=== PATIENT | female | born 1985 | race Caucasian/White ===

== ENCOUNTER 2020-03-16 08:48 | Observation (INO) | payer SELFPAY ==
[2020-03-16] VITALS (11 sets, daily range): BP systolic 87–137; BP diastolic 61–90; PULSE 85–109; RESP 18; TEMP 36.9–37.4; O2SAT 96–100; BMI 35.4
--- NOTE | 2020-03-16 09:12 | XR_ITS ---
WS: [id number] KUB, portable supine, 03/16/2020 Clinical Data: left flank pain Comparison: KUB, 06/05/2013. Findings: No abnormal intraabdominal masses or calcifications are seen. There is no dilatated small bowel or ev idence of obstruction. There are clips in the right upper quadrant from a cholecystectomy. There is a small clip in the left side of the chest or pelvis. Minimal fecal material is seen in the descending colon. XR/XR KUB portable [id number] Impression: Negative KUB.
--- NOTE | 2020-03-16 09:21 | ED_ITS ---
Documented by User: SETH Liu 03/16/20 13:41 HPI - Back Pain/Injury General: Chief Complaint: Back Pain/Injury Stated Complaint: Lower abdominal pain Time Seen by Provider: 03/16/20 09:06 History of Present Illness: HPI Narrative: 35-year-old female patient presents to the emergency department with left flank pain. Pain started yesterday. She denies fever but reports night sweats last night. History of kidney in fections/urinary tract infections. She denies dysuria. Denies nausea vomiting diarrhea. Denies history of kidney stones. Onset (ago): day(s) (2) Timing: intermittent and progressively worsening Severity: moderate Quality: sharp and aching Location: left flank Exacerbating factors: movement Relieving factors: other (rest) Context: turning/twisting and bending Associated symptoms: Reports chills; Deny abdominal pain, dysuria, fatigue, fever(s), nausea, urinary urgency or vomiting Work related injury: No Review of Systems General: Reports: 10 or more systems reviewed and unremarkable except in HPI and below Const: Reports: chills; Denies: fever(s), body aches, fatigue or malaise Eyes: Denies: blurry vision or eye redness ENMT: Denies: throat pain, dental pain or disequilibrium Card: Denies: chest pain, palpitations or irregular heart rhythm Resp: Denies: dyspnea, productive cough, non-productive cough or wheezing GI: Denies: abdominal pain, nausea, vomiting or pain on defecation : Denies: difficulty voiding, dysuria, urinary urgency, urinary incontinence or vaginal discharge Musc: Denies: neck pain or back pain Skin/Breast: Denies: rash or pruritus Neuro: Denies: headache(s), weakness in extremities or behavioral changes Psych: Denies: anxiety or depression Dimitris/Lymph: Denies: easy bruising Physical Exam Const: COMMON NORMALS: no acute distress, patient oriented x3, healthy appearing and alert GENERAL APPEARANCE: cooperative, comfortable and well hydrated HENMT: COMMON NORMALS: normocephalic, Normal external nose present and moist oral mucous membranes HEAD & SCALP: normocephalic NOSE: Normal external nose present Eye: COMMON NORMALS: Equal, round and reactive pupils present and EOMs intact bilaterally GENERAL EYE: appearance normal, both eyes and all related structures PUPIL: Yes Equal, round and reactive pupils present Neck/C-Spine: COMMON NORMALS: full ROM and no lymphadenopathy GENERAL: Yes normal visual inspection and Yes trachea midline CERVICAL SPINE: Yes cervical ROM normal Lymph: LYMPHATIC: no lymphadenopathy noted Chest: COMMONS NORMALS: normal inspection of the chest Resp: COMMON NORMALS: normal respiratory effort and clear to auscultation bilaterally AUSCULTATION: clear to auscultation bilaterally Cardio: COMMON NORMALS: regular rhythm, S1 normal heart sound present, S2 normal heart sound present and Peripheral pulses 2+ throughout RHYTHM: regular rhythm HEART SOUNDS: S1 normal heart sound present and S2 normal heart sound present PERIPHERAL PULSES: Peripheral pulses 2+ throughout GI: COMMON NORMALS: Normal to inspection, nondistended, normoactive bowel sounds present and Soft to palpation INSPECTION: Yes normal to inspection and Yes central obesity AUSCULTATION: Yes Hypoactive bowel sounds present PALPATION: Yes Soft to palpation, Yes Tenderness to palpation present (GI) Details: LUQ, No Hernia present, No Rebound tenderness present and Yes Bladder palpation abnormal Details: tender : BLADDER/KIDNEY EXAM: Yes Bladder palpation abnormal and Yes CVA tenderness EXTERNAL FEMALE EXAM: No Hernia present Back/Pelvis: COMMON NORMALS: thoracic and lumbar spine normal to inspection and thoraco-lumbar ROM normal GENERAL BACK: Yes CVA tenderness CVA tenderness: left THORACIC SPINE/UPPER BACK: Yes normal to inspection, Yes thoracic ROM normal, No paraspinal muscle tenderness and No paraspinal muscle spasm LUMBAR SPINE/LOWER BACK: Yes normal to inspection, Yes lumbar ROM normal, No paraspinal muscle tenderness and No paraspinal muscle spasm SACROILIAC JOINTS: Yes SI joints normal Extremity: COMMON NORMALS: normal to inspection and capillary refill normal Neuro: COMMON NORMALS: patient oriented x3 and no focal motor deficits SENSORIUM/ORIENTATION: Yes alert Psych: COMMON NORMALS: mental status grossly normal, Normal thought process present and cooperative ACTIVITY/MOTOR BEHAVIOR: Yes appropriate eye contact THOUGHT PROCESS: Normal thought process present Skin: COMMON NORMALS: no rashes or lesions noted and turgor normal GENERAL SKIN EXAM: no rashes or lesions noted and turgor normal Course ED course: 35-year-old female patient presents to the emergency department with findings of acute diverticulitis with perforation of the proximal left colon. White blood count elevated 17,000, case discussed with Dr. Wong as well as Dr. Forte, pain controlled with morphine 2 mg IV push along with Zofran. Transfer of care to Dr. Wong due to need for admission. Consultations: Consultation #1: Dr Kan at 1215 pm -Case discussed with Dr. Forte, radiology report CT scan abdomen pelvis discussed with perforation, Left hepatic flexure and descending colon thickening with inflammatory stranding and edema consistent with acute diverticulitis/colitis. Perforated diverticulum in the proximal left colon. No drainable abscess or fluid collection. Patient reports is healthy without past medical history with exception of cholecystectomy and C-sections. Placed on n.p.o. diet with exception of ice chips, advised antibiotics with lactated Ringer's rate 150 mls per hour. Advise Lovenox 40 mg subcu daily for DVT prevention, advised for CBC and CMP in the morning. Agrees to admit patient to observation. Request Covid PTC, patient does not exhibit symptoms of Covid at this time. Time: 12:15 Vital Signs: Vital signs: Vital Signs Temperature 98.4 F 03/16/20 08:52 Pulse Rate 102 H 03/16/20 11:34 Respiratory Rate 18 03/16/20 11:34 Blood Pressure 87/68 03/16/20 11:34 Pulse Oximetry 99 03/16/20 11:34 MDM - Back Pain/Injury Lab Data: Labs: Lab Results 03/16/20 03/16/20 03/16/20 Range/Units 09:20 10:00 10:00 WBC 17.3 H (4.0-10.0) 10^3/ uL RBC 4.67 (4.1-5.3) 10^6/u L Hgb 13.3 (11.5-15.3) g/dL Hct 41.3 (37.0-47.0) % MCV 88.4 (81-99) fL MCH 28.5 (28.0-34.0) pg MCHC 32.2 (30.0-36.0) g/dL RDW 13.3 (12.1-15.1) % Plt Count 436 H (130-400) 10^3/c mm MPV 9.2 (7.4-10.4) fL Neut % (Auto) 79.3 % Lymph % (Auto) 13.0 % [place] % (Auto) 5.9 % Eos % (Auto) 1.1 % Baso % (Auto) 0.3 % Neut # (Auto) 13.73 H (1.8-7.7) 10^3/u L Lymph # (Auto) 2.3 (0.8-4.8) 10^3/u L [place] # (Auto) 1.0 H (0.2-0.9) 10^3/u L Eos # (Auto) 0.2 (0.0-0.8) 10^3/u L Baso # (Auto) 0.1 (0.0-0.1) 10^3/u L Nucleated RBC % (a uto) 0 % Nucleated RBCs # 0.0 /100WBC D-Dimer (0-0.59) ug/mIFE U Sodium 133 L (136-145) mmol/L Potassium 3.8 (3.5-5.1) mmol/L Chloride 98 (98-107) mmol/L Carbon Dioxide 25 (22-29) mmol/L Anion Gap 13.8 (5-19) BUN 9 (6-20) mg/dL Creatinine 0.7 (0.5-0.9) mg/dL GFR Calculation 94.7 (90-130) mL/min Glucose 98 (65-115) mg/dL Calculated Osmolal ity 275 L (285-295) mOsm/k g Calcium 9.8 (8.5-10.5) mg/dL Total Bilirubin 0.6 (0.15-1.2) mg/dL AST 11 (0-32) U/L ALT 11 (0-33) U/L Alkaline Phosphata se 148 H (35-105) IU/L Total Protein 7.8 (6.6-8.7) g/dL Albumin 4.1 (3.5-5.2) g/dL Globulin 3.7 (1.3-4.6) g/dL Lipase 23 (13-60) U/L HCG, Qual (Negative) Urine Color Yellow (Yellow) Urine Appearance Clear (CLEAR) Urine pH 7.0 (5-7) Ur Specific Gravit y 1.005 (1.005-1.030) Urine Protein Neg (Negative) Urine Glucose (UA) Norm (Normal) Urine Ketones Negative (Negative) Urine Blood Neg (Negative) Urine Nitrate Negative (Negative) Urine Bilirubin Neg (Negative) Urine Urobilinogen 1 H (Negative) mg/dL Ur Leukocyte Joelle ase Negative (Negative) 03/16/20 03/16/20 Range/Units 10:00 10:00 WBC (4.0-10.0) 10^3/ uL RBC (4.1-5.3) 10^6/u L Hgb (11.5-15.3) g/dL Hct (37.0-47.0) % MCV (81-99) fL MCH (28.0-34.0) pg MCHC (30.0-36.0) g/dL RDW (12.1-15.1) % Plt Count (130-400) 10^3/c mm MPV (7.4-10.4) fL Neut % (Auto) % Lymph % (Auto) % [place] % (Auto) % Eos % (Auto) % Baso % (Auto) % Neut # (Auto) (1.8-7.7) 10^3/u L Lymph # (Auto) (0.8-4.8) 10^3/u L [place] # (Auto) (0.2-0.9) 10^3/u L Eos # (Auto) (0.0-0.8) 10^3/u L Baso # (Auto) (0.0-0.1) 10^3/u L Nucleated RBC % (a uto) % Nucleated RBCs # /100WBC D-Dimer 1.04 H (0-0.59) ug/mIFE U Sodium (136-145) mmol/L Potassium (3.5-5.1) mmol/L Chloride (98-107) mmol/L Carbon Dioxide (22-29) mmol/L Anion Gap (5-19) BUN (6-20) mg/dL Creatinine (0.5-0.9) mg/dL GFR Calculation (90-130) mL/min Glucose (65-115) mg/dL Calculated Osmolal ity (285-295) mOsm/k g Calcium (8.5-10.5) mg/dL Total Bilirubin (0.15-1.2) mg/dL AST (0-32) U/L ALT (0-33) U/L Alkaline Phosphata se (35-105) IU/L Total Protein (6.6-8.7) g/dL Albumin (3.5-5.2) g/dL Globulin (1.3-4.6) g/dL Lipase (13-60) U/L HCG, Qual Negative (Negative) Urine Color (Yellow) Urine Appearance (CLEAR) Urine pH (5-7) Ur Specific Gravit y (1.005-1.030) Urine Protein (Negative) Urine Glucose (UA) (Normal) Urine Ketones (Negative) Urine Blood (Negative) Urine Nitrate (Negative) Urine Bilirubin (Negative) Urine Urobilinogen (Negative) mg/dL Ur Leukocyte Joelle ase (Negative) Imaging Data^: Other Xray: Radiologist's impression: [place] [address] XRay Report Signed Patient: Karla Marion Unit #: [id number] : 1985 Age/Sex: 35 / F ADM Date: 03/16/20 Loc: ER Room/Bed: Attending Dr: Ordering Provider/Ordering MD: Cat Baker Date of Service: 03/16/20 Procedure(s): XR KUB portable [id number] Accession Number(s): [id number] Report Number: [id number] WS: [id number] KUB, portable supine, 03/16/2020 Clinical Data: left flank pain Comparison: KUB, 06/05/2013. Findings: No abnormal intraabdominal masses or calcifications are seen. There is no dilatated small bowel or evidence of obstruction. There are clips in the right upper quadrant from a cholecystectomy. There is a small clip in the left side of the chest or pelvis. Minimal fecal material is seen in the descending colon. XR/XR KUB portable [id number] Impression: Negative KUB. Dictated By: Matilda eJtt MD Signed By: Matilda Jett MD Signed Date/Time: 03/16/20942 DD/ 1 CXR: Radiologist's impression: [address] [address] XRay Report Signed Patient: Karla Marion Unit #: [id number] : 1985 Age/Sex: 35 / F ADM Date: 03/16/20 Loc: ER Room/Bed: Attending Dr: Ordering Provider/Ordering MD: Cat Baker Date of Service: 03/16/20 Procedure(s): XR chest 1V portable [id number] Accession Number(s): [id number] Report Number: [id number] WS: [id number] Portable AP upright chest, 03/16/2020 Clinical Data: syncope Comparison: None. Findings: No nodules, masses or effusions are seen. The heart is normal. The pulmonary vascularity is not increased. No pneumonia or pneumothorax is seen. The patient's clothing obscures minimal detail over the central chest. XR/XR chest 1V portable [id number] Impression: Negative chest. Dictated By: Matilda Jett MD Signed By: Matilda Jett MD Signed Date/Time: 03/16/20 110 DD/ 110 CT Abd/Pel: Radiologist's impression: [place] [address] CT Scan Report Signed Patient: Karla Marion Unit #: [id number] : 1985 Age/Sex: 35 / F ADM Date: 03/16/20 Loc: ER Room/Bed: Attending Dr: Ordering Provider/Ordering MD: Cat Baker Date of Service: 03/16/20 Procedure(s): CT kidney stone [id number] Accession Number(s): [id number] Report Number: [id number] WS: [id number] CT ABDOMEN PELVIS TECHNIQUE: Noncontrast CT of the abdomen and pelvis with coronal and sagittal reformatted images. CLINICAL INFORMATION: flank pain - left COMPARISON: None. DLP: 2213.[address] scans at [facility] use at least one of these dose optimization techniques: automated exposure control; mA and/or kV adjustment per patient size (includes targeted exams where dose is matched to clinical indication); or iterative reconstruction. FINDINGS:Normal sigmoid colon. Diffuse thickening and inflammatory stranding involving the descending left colon more prominent at the splenic flexure and proximal descending colon with a few diverticuli consistent with diverticulitis/colitis. Small perforated diverticulum in the proximal descending colon. No drainable abscess or fluid collection. Noncontrast liver is normal. Prior cholecystectomy. Lung bases are well aerated. Tiny subpleural nodule in the right upper lobe measuring 4 mm. Noncontrast spleen is normal. Normal noncontrast pancreas. Adrenal glands are normal. No hydronephrosis in either kidney. Ureters are decompressed. Normal caliber abdominal aorta. No periaortic lymphadenopathy. Incidental fat-containing umbilical hernia. Normal sigmoid colon. Diffuse thickening and inflammatory stranding involving the descending left colon more prominent at the splenic flexure and proximal descending colon with a few diverticuli consistent with diverticulitis/colitis. Small perforated diverticulum in the proximal descending colon. No drainable abscess or fluid collection. No inguinal lymphadenopathy. No free fluid in the pelvis. Normal appendix. CT/CT kidney stone [id number] IMPRESSION: 1. Left hepatic flexure and descending colon thickening with inflammatory stranding and edema consistent with acute diverticulitis/colitis. Perforated diverticulum in the proximal left colon. No drainable abscess or fluid collection. 2. Prior cholecystectomy. 3. 4 mm subpleural nodule in the right upper lobe laterally. Recommend 12 month follow-up. 4. Incidental fat-containing umbilical hernia. Message left for SETH Liu at 03/16/2020 11:48 AM. Dictated By: Jairo Hansen MD Signed By: Jairo Hansen MD Signed Date/Time: 03/16/20 1153 DD/ 1143 Discharge Plan Discharge Admit Provider: Fercho Forte Sign Out Sign Out Data: Patient Sign Out occurred on 03/16/20 at 12:30. Patient's care was discussed, and care was transferred from to Aissatou Contreras. Coding Level of Care Code ED Produce Clerk for Chg Fwd Exam Comprehensive Documented by User: Aissatou Contreras 03/16/20 12:56 HPI - Back Pain/Injury General: Chief Complaint: Back Pain/Injury Stated Complaint: Lower abdominal pain Time Seen by Provider: 03/16/20 09:06 Procedures EJ/Peripheral Line Arm R: Time Out Performed: Yes Skin Cleansed in Sterile Fashion: Yes Size (gauge): 20 IV Secured and Dressing Applied: Yes Patient Tolerated Procedure: well Additional Comments: Percent utilized throughout procedure. Course Vital Signs: Vital signs: Vital Signs Temperature 98.4 F 03/16/20 08:52 Pulse Rate 102 H 03/16/20 11:34 Respiratory Rate 18 03/16/20 11:34 Blood Pressure 87/68 03/16/20 11:34 Pulse Oximetry 99 03/16/20 11:34 MDM - Back Pain/Injury MDM Narrative: Medical decision making narrative: Patient signed out to me from Cat Boston APN. Please see her note for history, physical exam and medical decision-making notes. Patient's exam to me shows no sign of peritonitis but she is tender in the left side. She will be given IV antibiotics and pain medicines and further care will be dictated by Dr. Forte. Lab Data: Labs: Lab Results 03/16/20 03/16/20 03/16/20 Range/Units : 10:00 10:00 WBC 17.3 H (4.0-10.0) 10^3/ uL RBC 4.67 (4.1-5.3) 10^6/u L Hgb 13.3 (11.5-15.3) g/dL Hct 41.3 (37.0-47.0) % MCV 88.4 (81-99) fL MCH 28.5 (28.0-34.0) pg MCHC 32.2 (30.0-36.0) g/dL RDW 13.3 (12.1-15.1) % Plt Count 436 H (130-400) 10^3/c mm MPV 9.2 (7.4-10.4) fL Neut % (Auto) 79.3 % Lymph % (Auto) 13.0 % [place] % (Auto) 5.9 % Eos % (Auto) 1.1 % Baso % (Auto) 0.3 % Neut # (Auto) 13.73 H (1.8-7.7) 10^3/u L Lymph # (Auto) 2.3 (0.8-4.8) 10^3/u L [place] # (Auto) 1.0 H (0.2-0.9) 10^3/u L Eos # (Auto) 0.2 (0.0-0.8) 10^3/u L Baso # (Auto) 0.1 (0.0-0.1) 10^3/u L Nucleated RBC % (a uto) 0 % Nucleated RBCs # 0.0 /100WBC D-Dimer (0-0.59) ug/mIFE U Sodium 133 L (136-145) mmol/L Potassium 3.8 (3.5-5.1) mmol/L Chloride 98 (98-107) mmol/L Carbon Dioxide 25 (22-29) mmol/L Anion Gap 13.8 (5-19) BUN 9 (6-20) mg/dL Creatinine 0.7 (0.5-0.9) mg/dL GFR Calculation 94.7 (90-130) mL/min Glucose 98 (65-115) mg/dL Calculated Osmolal ity 275 L (285-295) mOsm/k g Calcium 9.8 (8.5-10.5) mg/dL Total Bilirubin 0.6 (0.15-1.2) mg/dL AST 11 (0-32) U/L ALT 11 (0-33) U/L Alkaline Phosphata se 148 H (35-105) IU/L Total Protein 7.8 (6.6-8.7) g/dL Albumin 4.1 (3.5-5.2) g/dL Globulin 3.7 (1.3-4.6) g/dL Lipase 23 (13-60) U/L HCG, Qual (Negative) Urine Color Yellow (Yellow) Urine Appearance Clear (CLEAR) Urine pH 7.0 (5-7) Ur Specific Gravit y 1.005 (1.005-1.030) Urine Protein Neg (Negative) Urine Glucose (UA) Norm (Normal) Urine Ketones Negative (Negative) Urine Blood Neg (Negative) Urine Nitrate Negative (Negative) Urine Bilirubin Neg (Negative) Urine Urobilinogen 1 H (Negative) mg/dL Ur Leukocyte Joelle ase Negative (Negative) 10/22/20 10/22/20 Range/Units 10:00 10:00 WBC (4.0-10.0) 10^3/ uL RBC (4.1-5.3) 10^6/u L Hgb (11.5-15.3) g/dL Hct (37.0-47.0) % MCV (81-99) fL MCH (28.0-34.0) pg MCHC (30.0-36.0) g/dL RDW (12.1-15.1) % Plt Count (130-400) 10^3/c mm MPV (7.4-10.4) fL Neut % (Auto) % Lymph % (Auto) % [place] % (Auto) % Eos % (Auto) % Baso % (Auto) % Neut # (Auto) (1.8-7.7) 10^3/u L Lymph # (Auto) (0.8-4.8) 10^3/u L [place] # (Auto) (0.2-0.9) 10^3/u L Eos # (Auto) (0.0-0.8) 10^3/u L Baso # (Auto) (0.0-0.1) 10^3/u L Nucleated RBC % (a uto) % Nucleated RBCs # /100WBC D-Dimer 1.04 H (0-0.59) ug/mIFE U Sodium (136-145) mmol/L Potassium (3.5-5.1) mmol/L Chloride (98-107) mmol/L Carbon Dioxide (22-29) mmol/L Anion Gap (5-19) BUN (6-20) mg/dL Creatinine (0.5-0.9) mg/dL GFR Calculation (90-130) mL/min Glucose (65-115) mg/dL Calculated Osmolal ity (285-295) mOsm/k g Calcium (8.5-10.5) mg/dL Total Bilirubin (0.15-1.2) mg/dL AST (0-32) U/L ALT (0-33) U/L Alkaline Phosphata se (35-105) IU/L Total Protein (6.6-8.7) g/dL Albumin (3.5-5.2) g/dL Globulin (1.3-4.6) g/dL Lipase (13-60) U/L HCG, Qual Negative (Negative) Urine Color (Yellow) Urine Appearance (CLEAR) Urine pH (5-7) Ur Specific Gravit y (1.005-1.030) Urine Protein (Negative) Urine Glucose (UA) (Normal) Urine Ketones (Negative) Urine Blood (Negative) Urine Nitrate (Negative) Urine Bilirubin (Negative) Urine Urobilinogen (Negative) mg/dL Ur Leukocyte Joelle ase (Negative) Discharge Plan Discharge Admit Provider: Fercho Forte Sign Out Sign Out Data: Patient Sign Out occurred on 03/16/20 at 12:30. Patient's care was discussed, and care was transferred from to Aissatou Delgado [facility]. Coding Level of Care Code ED Produce Clerk for Jose Fwd Exam Comprehensive
[2020-03-16 10:07] LABS: Add Urine Microscopic? NO
[2020-03-16 10:17] LABS: Bilirubin Urine Neg (Negative); Blood Urine Neg (Negative); Glucose Urine UA Norm (Normal); Ketones Urine Negative (Negative); Leukocyte Esterase Urine Negative (Negative); Nitrate Urine Negative (Negative); Protein Urine Neg (Negative); Specific Gravity, Urine 1.005 (1.005-1.030); Urine Appearance Clear (CLEAR); Urine Color Yellow (Yellow); Urobilinogen Urine 1 mg/dL (Negative)
[2020-03-16 10:18] LABS: Basophils # 0.1 10^3/uL (0.0-0.1); Basophils % 0.3 %; Eosinophils # 0.2 10^3/uL (0.0-0.8); Eosinophils % 1.1 %; Hematocrit 41.3 % (37.0-47.0); Hemoglobin 13.3 g/dL (11.5-15.3); Lymphocytes # 2.3 10^3/uL (0.8-4.8); Mean Corpuscular HGB Conc 32.2 g/dL (30.0-36.0); Mean Corpuscular Hemoglobin 28.5 pg (28.0-34.0); Mean Corpuscular Volume 88.4 fL (81-99); Mean Platelet Volume 9.2 fL (7.4-10.4); Monocytes % 5.9 %; Neutrophils # 13.73 10^3/uL (1.8-7.7); Neutrophils % 79.3 %; Nucleated Red Blood Cells % 0 %; Platelet Count 436 10^3/cmm (130-400); Red Blood Count 4.67 10^6/uL (4.1-5.3); Red Cell Distribution Width 13.3 % (12.1-15.1); White Blood Count 17.3 10^3/uL (4.0-10.0)
[2020-03-16] MEDS: morphine 4 mg/mL SDV 1 mL 2 MG IVP (10:18)
[2020-03-16] MEDS: ondansetron 2 mg/ML SDV 2 mL 4 MG IVP (10:19)
[2020-03-16 10:24] LABS: HCG, Serum Qual Negative (Negative)
[2020-03-16 10:28] LABS: Alanine Aminotransferase 11 U/L (0-33); Albumin Level 4.1 g/dL (3.5-5.2); Alkaline Phosphatase 148 IU/L (35-105); Anion Gap 13.8 (5-19); Aspartate Amino Transferase 11 U/L (0-32); Carbon Dioxide 25 mmol/L (22-29); Chloride 98 mmol/L (98-107); Globulin 3.7 g/dL (1.3-4.6); Glomerular Filtration Rate 94.7 mL/min (90-130); Glucose 98 mg/dL (65-115); Lipase 23 U/L (13-60); Potassium 3.8 mmol/L (3.5-5.1); Sodium 133 mmol/L (136-145); Total Bilirubin 0.6 mg/dL (0.15-1.2); Total Protein 7.8 g/dL (6.6-8.7)
[2020-03-16 10:39] LABS: Blood Urea Nitrogen 9 mg/dL (6-20); Calcium 9.8 mg/dL (8.5-10.5); Osmolality Calculated 275 mOsm/kg (285-295)
--- NOTE | 2020-03-16 10:40 | CT_ITS ---
WS: [id number] CT ABDOMEN PELVIS TECHNIQUE: Noncontrast CT of the abdomen and pelvis with coronal and sagittal reformatted images. CLINICAL INFORMATION: flank pain - left COMPARISON: None. DLP: 2213.[address] scans at [facility] use at least one of these dose optimization techniques: automat ed exposure control; mA and/or kV adjustment per patient size (includes targeted exams where dose is matched to clinical indication); or iterative reconstruction. FINDINGS:Normal sigmoid colon. Diffuse thickening and inflammatory stranding involving the descending left colon more prominent at the splenic flexure and proximal descending colon with a few diverticul i consistent with diverticulitis/colitis. Small perforated diverticulum in the proximal descending co adis. No drainable abscess or fluid collection. Noncontrast liver is normal. Prior cholecystectomy. Lung bases are well aerated. Tiny subpleural nodu le in the right upper lobe measuring 4 mm. Noncontrast spleen is normal. Normal noncontrast pancreas. Adrenal glands are normal. No hydronephros is in either kidney. Ureters are decompressed. Normal caliber abdominal aorta. No periaortic lymphade nopathy. Incidental fat-containing umbilical hernia. Normal sigmoid colon. Diffuse thickening and inflammatory stranding involving the descending left col on more prominent at the splenic flexure and proximal descending colon with a few diverticuli consist ent with diverticulitis/colitis. Small perforated diverticulum in the proximal descending colon. No d rainable abscess or fluid collection. No inguinal lymphadenopathy. No free fluid in the pelvis. Normal appendix. CT/CT kidney stone [id number] IMPRESSION: 1. Left hepatic flexure and descending colon thickening with inflammatory stra nding and edema consistent with acute diverticulitis/colitis. Perforated divert iculum in the proximal left colon. No drainable abscess or fluid collection. 2. Prior cholecystectomy. 3. 4 mm subpleural nodule in the right upper lobe laterally. Recommend 12 brissa h follow-up. 4. Incidental fat-containing umbilical hernia. Message left for SETH Liu at 03/16/2020 11:48 AM.
--- NOTE | 2020-03-16 10:46 | XR_ITS ---
WS: [id number] Portable AP upright chest, 03/16/2020 Clinical Data: syncope Comparison: None. Findings: No nodules, masses or effusions are seen. The heart is normal. The pulmonary vascularity is not increased. No pneumonia or pneumothorax is seen. The patient's clothing obscures minimal detail over the central chest. XR/XR chest 1V portable [id number] Impression: Negative chest.
[2020-03-16 11:07] LABS: D Dimer 1.04 ug/mIFEU (0-0.59)
[2020-03-16] MEDS: metroNIDAZOLE IV 500 MG/100 ML PREMIX 100 MG IV ×2 (12:54→22:25)
[2020-03-16] MEDS: ciprofloxacin 400 MG/200 ML PREMIX 200 MG IV (12:54)
[2020-03-16 13:09] LABS: Lactate (Lactic Acid level) 0.7 mmol/L (0.5-2.2)
--- NOTE | 2020-03-16 14:44 | P.HP_ITS ---
Providers/Chief Complaint Admitting Physician: Fercho Forte MD Primary Care Provider: Tung Coronado DO Chief Complaint: Lower abdominal pain History of Present Illness Chief Complaint: Abdominal pain History of present illness: Ms Karla Marion is a 35 year old female presents to the emergency department with worsening abdominal pain located mostly on the left side particularly left lower quadrant and being referred to the left flank patient describes it more as sharp and it was thought initially the patient has a kidney stone. Undergone a CT scan protocol that showed INDINGS:Normal sigmoid colon. Diffuse thickening and inflammatory stranding involving the descending left colon more prominent at the splenic flexure and proximal descending colon with a few diverticuli consistent with diverticulitis/colitis. Small perforated diverticulum in the proximal descending colon. No drainable abscess or fluid collection. Noncontrast liver is normal. Prior cholecystectomy. Lung bases are well aerated. Tiny subpleural nodule in the right upper lobe measuring 4 mm. Noncontrast spleen is normal. Normal noncontrast pancreas. Adrenal glands are normal. No hydronephrosis in either kidney. Ureters are decompressed. Normal caliber abdominal aorta. No periaortic lymphadenopathy. Incidental fat- containing umbilical hernia. Normal sigmoid colon. Diffuse thickening and inflammatory stranding involving the descending left colon more prominent at the splenic flexure and proximal descending colon with a few diverticuli consistent with diverticulitis/colitis. Small perforated diverticulum in the proximal descending colon. No drainable abscess or fluid collection. No inguinal lymphadenopathy. No free fluid in the pelvis. Normal appendix. CT/CT kidney stone [id number] IMPRESSION: 1. Left hepatic flexure and descending colon thickening with inflammatory stranding and edema consistent with acute diverticulitis/colitis. Perforated diverticulum in the proximal left colon. No drainable abscess or fluid collection. 2. Prior cholecystectomy. 3. 4 mm subpleural nodule in the right upper lobe laterally. Recommend 12 month follow-up. 4. Incidental fat-containing umbilical hernia. Further blood work showed leukocytosis and general surgery was consulted for further evaluation and management. She reports no previous episodes of such but she does give me history of diverticulosis of her grandma and her mother. She denies history of colon cancer inflammatory bowel disease no bleeding per rectum or change in bowel habits. Review of Systems General: Reports: 10 or more systems reviewed and unremarkable except in HPI and below Medications/Allergies Allergies Allergy/AdvReac Type Severity Reaction Status Date / Time ceftriaxone Allergy ALGY-Anaphy Verified 03/16/20 17:14 laxis PFSH Acute PFSH: Social History (Updated 03/16/20 @ 17:14 by Fercoh Forte MD) Smoking and tobacco status: never smoked Alcohol intake: never Substance/Drug Use: former Vitals/I&O/Wt Last Vital Signs Temp 98.4 F 03/16/20 08:52 Pulse 97 03/16/20 14:27 Resp 18 03/16/20 14:27 BP 112/87 03/16/20 14:27 Pulse Ox 98 03/16/20 14:27 Weight last 48 hrs Weight 240 lb Physical Exam Narrative: EXAM NARRATIVE: Patient is conscious alert oriented X3 BMI 35.4 Head and neck examination PERRLA no masses no cervical lymphadenopathy no jaundice Cardiac examination audible S1-S2 no murmurs no gallops no arrhythmias Chest is clear bilateral,abscence of Rhonchi or wheezes,no surgical emphysema Abdomen nontender except on the left lower side in addition to left flank tenderness nondistended soft no organomegaly guarding or rigidity/no signs of peritonitis Extremities no cyanosis no clubbing no edema Data : 03/17/20 04:45 03/17/20 04:45 A&P Assessment and plan (1) Diverticulitis: After thorough history physical examination reviewing the chart and images of the CT scan with my personal interpretation. We will plan to continue pat ient on ciprofloxacin and Flagyl IV every 8 hours. Appropriate pain control IV fluid resuscitation in the form of LR 150 mL/h Repeated physical examination Pharmacologic DVT prophylaxis in the form of Lovenox 40 mg subcutaneous daily. Encourage ambulation Once patient recovers from this episode in 6 to 8 weeks she would benefit from a colonoscopy Assurance and education All questions have been answered and all concerns have been addressed to patient's satisfaction. Status: Acute Attestations Medical Necessity Statement*: Patient will be kept in observation status with repeated physical examination, IV fluid resuscitation and repeat blood work. Time Spent in Patient Care: (>than 50% of time spent in counselling and/or direct pt care on unit) . 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
[2020-03-16] MEDS: dextrose 5%-sod chloride 0.45% 1,000 ML 100 ML IV (18:41)
[2020-03-16] MEDS: morphine 4 mg/mL SDV 1 mL IVP (20:57)
[2020-03-17] VITALS (9 sets, daily range): BP systolic 99–126; BP diastolic 57–85; PULSE 77–85; RESP 16–22; TEMP 36.7–37.2; O2SAT 95–97
[2020-03-17] MEDS: ciprofloxacin 400 MG/200 ML PREMIX 200 MG IV ×2 (02:50→15:19)
[2020-03-17 05:33] LABS: Basophils % 0.4 %; Eosinophils # 0.2 10^3/uL (0.0-0.8); Eosinophils % 1.7 %; Hematocrit 37.2 % (37.0-47.0); Hemoglobin 11.6 g/dL (11.5-15.3); Lymphocytes # 1.3 10^3/uL (0.8-4.8); Lymphocytes % 13.4 %; Mean Corpuscular HGB Conc 31.2 g/dL (30.0-36.0); Mean Corpuscular Hemoglobin 28.2 pg (28.0-34.0); Mean Corpuscular Volume 90.3 fL (81-99); Mean Platelet Volume 9.6 fL (7.4-10.4); Monocytes # 0.8 10^3/uL (0.2-0.9); Monocytes % 8.1 %; Neutrophils # 7.28 10^3/uL (1.8-7.7); Nucleated Red Blood Cells % 0 %; Platelet Count 347 10^3/cmm (130-400); Red Blood Count 4.12 10^6/uL (4.1-5.3); Red Cell Distribution Width 13.2 % (12.1-15.1); White Blood Count 9.6 10^3/uL (4.0-10.0)
--- NOTE | 2020-03-17 06:06 | PM.PN ---
Subjective Subjective: Interval history: Patient overall feels a whole lot better trending down and leukocytosis and within normal limits at this point. Good urine output. Vitals/I&O/Wt Last Vital Signs Temp 98.5 F 03/17/20 04:00 Pulse 82 03/17/20 04:00 Resp 22 H 03/17/20 04:00 BP 99/63 03/17/20 04:00 Pulse Ox 95 03/17/20 04:00 03/16/20 03/16/20 03/17/20 14:59 22:59 06:59 Output Total 300 / 300 900 / 1200 Balance -300 / -300 -900 / -1200 Weight last 48 hrs Weight 240 lb Physical Exam Narrative: EXAM NARRATIVE: Patient is conscious alert oriented X3 BMI 35.4 Head and neck examination PERRLA no masses no cervical lymphadenopathy no jaundice Cardiac examination audible S1-S2 no murmurs no gallops no arrhythmias Chest is clear bilateral,abscence of Rhonchi or wheezes,no surgical emphysema Abdomen less tender nondistended soft no organomegaly guarding or rigidity/no signs of peritonitis Obese Data : 03/17/20 04:45 03/17/20 04:45 A&P Assessment and plan (1) Diverticulitis: We will plan to continue patient on ciprofloxacin and Flagyl IV every 8 hours. Appropriate pain control We will switch IV fluids to LR at 75 mL/h and will start the patient slowly on clear liquid diet Repeated physical examination Pharmacologic DVT prophylaxis in the form of Lovenox 40 mg subcutaneous daily. Encourage ambulation Once patient recovers from this episode in 6 to 8 weeks she would benefit from a colonoscopy Assurance and education All questions have been answered and all concerns have been addressed to patient's satisfaction. 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
[2020-03-17 06:18] LABS: Anion Gap 13.6 (5-19); Blood Urea Nitrogen 6 mg/dL (6-20); Calcium 8.5 mg/dL (8.5-10.5); Carbon Dioxide 25 mmol/L (22-29); Chloride 100 mmol/L (98-107); Glomerular Filtration Rate 139.6 mL/min (90-130); Glucose 128 mg/dL (65-115); Osmolality Calculated 279 mOsm/kg (285-295); Potassium 3.6 mmol/L (3.5-5.1); Sodium 135 mmol/L (136-145)
[2020-03-17] MEDS: metroNIDAZOLE IV 500 MG/100 ML PREMIX 100 MG IV ×3 (06:18→22:22)
[2020-03-17] MEDS: dextrose 5%-sod chloride 0.45% 1,000 ML 100 ML IV (06:18)
[2020-03-17] MEDS: lactated ringers 1,000 ML 75 ML IV (07:57)
[2020-03-17] MEDS: enoxaparin 40 mg/0.4 mL Syringe SUBCUT (07:57)
[2020-03-17] MEDS: morphine 4 mg/mL SDV 1 mL IVP ×3 (08:07→20:17)
--- NOTE | 2020-03-17 09:28 | PC.CHAP ---
Pastoral Care Encounter/Spiritual Assessment Type of Contact [] Declined train inspector visit [] Patient/Family/Request visit [] Outpatient visit [] Follow-up visit [] Physician referral [] Code/Alert [] Routine visit [] Staff referral [] Actively dying [] Patient sleeping [] Family support [] [] Out of room [] Palliative care [] [] Receiving care in room [] Pre-surgical visit [] Trauma [] Long length of stay [] ICU visit [] Other: Relational/Emotional Strength [] Patient feels connected with others/family/visitors/staff [] Distress [] Loneliness/isolation [] Abandonment Spirituality of Patient [] Person of Pauline [] Attends Zoroastrianism of their Pauline [] Believes in Prayer [] Reads Bible or Episcopalian materials [] There are Spiritual issues to be addressed Mold Hoister Interventions [] Prayer [] Active listening [] Non-anxious presence [] Spiritual/emotional support [] Crisis/trauma care [] Spiritual counseling [] Bereavement support [] Provided bereavement packet [] Provided Bible/devotional materials [] Provided toy/stuffed animal, coloring book to patient or family member [] Provided Communion [] Anointing/Enigma [] Salvation [] Completed spiritual assessment [] Other: Impact on Illness or Injury [] Angry [] Fearful [] Anxious [] Often cries [] Exhaustion [] Unable to work [] Unable to attend jew [] Unable to walk/stand [] Unable to read [] Unable to drive [] Unable to eat/drink [] Unable to sleep [] Unable to be with family [] Patient intubated [] Other: Summary closed off Time spent with patient
[2020-03-17 15:11] LABS: Coronavirus Lab Test PTC Negative
[2020-03-18] VITALS (7 sets, daily range): BP systolic 104–126; BP diastolic 69–82; PULSE 70–85; RESP 18; TEMP 36.4–36.9; O2SAT 96–99
[2020-03-18] MEDS: lactated ringers 1,000 ML 75 ML IV (01:00)
[2020-03-18] MEDS: ciprofloxacin 400 MG/200 ML PREMIX 200 MG IV (02:37)
[2020-03-18] MEDS: morphine 4 mg/mL SDV 1 mL IVP ×2 (03:35→10:53)
[2020-03-18] MEDS: metroNIDAZOLE IV 500 MG/100 ML PREMIX 100 MG IV (06:39)
[2020-03-18] MEDS: enoxaparin 40 mg/0.4 mL Syringe SUBCUT (06:39)
[2020-03-18 06:53] LABS: Basophils % 0.5 %; Eosinophils # 0.2 10^3/uL (0.0-0.8); Eosinophils % 2.4 %; Hemoglobin 11.6 g/dL (11.5-15.3); Lymphocytes # 1.4 10^3/uL (0.8-4.8); Lymphocytes % 15.2 %; Mean Corpuscular HGB Conc 31.4 g/dL (30.0-36.0); Mean Corpuscular Hemoglobin 28.1 pg (28.0-34.0); Mean Corpuscular Volume 89.6 fL (81-99); Mean Platelet Volume 9.6 fL (7.4-10.4); Monocytes # 0.8 10^3/uL (0.2-0.9); Monocytes % 8.8 %; Neutrophils # 6.47 10^3/uL (1.8-7.7); Neutrophils % 72.9 %; Nucleated Red Blood Cells % 0 %; Platelet Count 397 10^3/cmm (130-400); Red Blood Count 4.13 10^6/uL (4.1-5.3); White Blood Count 8.9 10^3/uL (4.0-10.0)
--- NOTE | 2020-03-18 07:18 | P.SS_ITS ---
Short Stay Summary Providers Date of Admit/Discharge: 03/18/20 Attending Provider: Fercho Forte MD Primary Care Provider: Tung Coronado DO Chief Complaint: Lower abdominal pain HPI History of Present Illness Chief Complaint: Abdominal pain History of present illness: Karla Marion is a 35 year old female presented to the emergency department with worsening left-sided abdominal pain, after further work-up as initially there was a thought about kidney stone. Renal protocol CT scan was obtained and showed diverticulitis with localized perforation. Patient was admitted on my service for observation status for IV antimicrobial therapy and repeated physical examination. Review of Systems General: Reports: 10 or more systems reviewed and unremarkable except in HPI and below Home Meds/Allergies Home Medications and Allergies Allergies Allergy/AdvReac Type Severity Reaction Status Date / Time ceftriaxone Allergy ALGY-Anaphy Verified 03/18/20 07:19 laxis PFSH Acute PFSH: Medical History Obese Social History Smoking and tobacco status: never smoked Alcohol intake: never Substance/Drug Use: former Female Reproductive History: Date of last menstrual period: 03/02/20 Vitals/I&O/Wt Last Vital Signs Temp 97.8 F 03/18/20 03:18 Pulse 84 03/18/20 03:18 Resp 18 03/18/20 03:35 BP 104/69 03/18/20 03:18 Pulse Ox 96 03/18/20 03:18 03/17/20 03/18/20 03/18/20 22:59 06:59 14:59 Intake Total 1680 / 2720 200 / 2920 Output Total 800 / 2900 950 / 3850 Balance 880 / -180 -750 / -930 Weight last 48 hrs Weight 240 lb Physical Exam Narrative: EXAM NARRATIVE: Patient is conscious alert oriented X3 BMI 35 Head and neck examination PERRLA no masses no cervical lymphadenopathy no jaundice Abdomen much less tender nondistended soft no organomegaly guarding or rigidity/no signs of peritonitis Extremities no cyanosis no clubbing no edema Hospital Course Admission Diagnoses: Acute diverticulitis Hospital Course: Patient overall did well over her hospital course, responded to antibiotics in the form of IV form and tolerated p.o. intake. Continue to have stable vital signs and no evidence of fevers or chills. Patient currently feels a whole lot better and she is appropriate to be discharged home on oral antibiotics in the form of ciprofloxacin and Flagyl for 10 days. Discharge Summary: 35 years old female patient with complicated diverticulitis with localized perforation responding well to IV antibiotics. Leukocytosis normalized. Tolerating p.o. intake and have good urine output and continues to have stable vital signs. Will advance to full liquid diet once tolerated can be discharged home on oral antibiotics. With the plan to follow-up with me in the office in 2 weeks to schedule the patient for colonoscopy 6 to 8 weeks out from her acute episode. Patient was educated and instructed if she does have any worsening symptoms she is to come back to the emergency department for further evaluation. Office is on weight management and education with regard to appropriate diet. And avoiding constipation. SSS Data Data Completed and Pending: Completed Studies During Hospitalization Category Date Time Status CT kidney stone 7 4176 Urgent Cat Scan 03/16/20 10:40 Completed XR KUB portable 7 4018 Urgent Exams 03/16/20 09:12 Completed XR chest 1V [place] ble [id number] Stat Exams 03/16/20 10:46 Completed Pending at discharge Category Date Time Status Basic Metabolic P rodrick AM LABS Lab 03/18/20 04:00 Ordered Diagnoses at Discharge Discharge Diagnosis (1) Diverticulitis: Status: Acute Problem details: Plan of care; Review the pathology with the patient Return to primary care provider Avoid constipation Avoid seeds nuts and popcorn High Fiber diet; As Fiber softens the stool and helps prevent constipation. It also can help decrease pressure in the colon and help prevent flare-ups of diverticulitis. High-fiber foods include: ?Beans and legumes ?Bran, whole wheat bread and whole grain cereals such as oatmeal ?Brown and wild rice ?Fruits such as apples, bananas and pears ?Vegetables such as broccoli, carrots, corn and squash ?Whole wheat pasta The target is to eat 25 to 30 grams of fiber daily. Drink at least 8 cups of fluid daily. Fluid will help soften your stool.Exercise also promotes bowel movement and helps prevent constipation. Weight management Assurance and education All questions have been answered Discharge Plan Discharge Patient Disposition: Home Condition: Stable Prescriptions: New ciprofloxacin HCl 500 mg tablet 500 mg PO BID Qty: 20 RF: 0 [place] 5-325 mg tablet 1 tab PO Q6H PRN (Reason: pain) Qty: 20 RF: 0 Flagyl 500 mg tablet 500 mg PO Q8H 10 Days Qty: 30 RF: 0 Discharge Orders: Discharge Order (Routine); Ordered 03/18/20 Ordered By: Fercho Forte Referrals: Fercho Forte MD [Physician] - (Return to surgery office in 2-week) Discharge Diet: As Directed Discharge Activity: Increase activity as tolerated Activity Restrictions/Additional Instructions: Patient can return back to work in a week Plan of care; Review the pathology with the patient Return to primary care provider Avoid constipation emphasis on using Metamucil twice daily/Benafiber Avoid seeds nuts and popcorn High Fiber diet; As Fiber softens the stool and helps prevent constipation. It also can help decrease pressure in the colon and help prevent flare-ups of diverticulitis. High-fiber foods include: ? Beans and legumes ? Bran, whole wheat bread and whole grain cereals such as oatmeal ? Brown and wild rice ? Fruits such as apples, bananas and pears ? Vegetables such as broccoli, carrots, corn and squash ? Whole wheat pasta The target is to eat 25 to 30 grams of fiber daily. Drink at least 8 cups of fluid daily. Fluid will help soften your stool.Exercise also promotes bowel movement and helps prevent constipation. Weight management Assurance and education All questions have been answered Attestations Medical Necessity Statement*: Patient is in observation status for IV antimicrobial therapy and repeated physical examination. 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
[2020-03-18 07:31] LABS: Anion Gap 11.9 (5-19); Blood Urea Nitrogen 5 mg/dL (6-20); Calcium 8.8 mg/dL (8.5-10.5); Carbon Dioxide 25 mmol/L (22-29); Chloride 103 mmol/L (98-107); Glomerular Filtration Rate 139.6 mL/min (90-130); Glucose 93 mg/dL (65-115); Osmolality Calculated 279 mOsm/kg (285-295); Potassium 3.9 mmol/L (3.5-5.1); Sodium 136 mmol/L (136-145)
== END 2020-03-18 13:28 | disposition home or self-care (01) ==
LOC: ER 13:20 → MEDSURG 13:23
PROVIDERS: Emergency Medicine; Nurse Practitioner Family; Admitting Provider Surgery; Visit Provider Surgery
DX: K57.92 Diverticulitis of intestine, part unspecified, without perforation or abscess without bleeding (principal)
CPT/HCPCS: 12345; 36415; 71045; 74018; 74176; 80048; 80053; 81003; 83605; 83690; 84703; 85025; 85378; 87635; 96361; 96365; 96366; 96367; 96372; 96375; 99283; 99285; G0378; J0744; J1650; J2270; J2405; J7799; S0030

== ENCOUNTER → 2020-05-04 13:06 | Outpatient (BNVA) | payer OTHER, SELFPAY | PROVIDERS: Visit Provider Surgery | DX: Z20.828 Contact with and (suspected) exposure to other viral communicable diseases (principal); Z01.812 Encounter for preprocedural laboratory examination | CPT/HCPCS: 87635 ==

== ENCOUNTER 2020-05-08 06:59 | Day surgery (SDC) | payer SELFPAY ==
[2020-05-04 16:38] VITALS: BMI 32.5
--- NOTE | 2020-05-08 07:22 | W.PM.OPSFHP ---
Same Day Surgery H&P Indication for Procedure/HPI DATE OF PROCEDURE: May 08, 2020 CHIEF COMPLAINT/INDICATIONFOR SURGICAL PROCEDURE: History of diverticulitis PREOP DIAGNOSIS: History of diverticulitis PLANNED PROCEDRUE: Operation Date: 05/08/20 08:00 Proposed Procedures p Colonoscopy 29728 k57.92(Not Applicable) - Fercho Forte MD This is a 35 years old pleasant female patient recently hospitalized because of complicated diverticulitis of the colon and was treated conservatively. Patient currently denies any complaints and having regular bowel movements. Comes today for follow-up Previous CT scan was done that showed 1. Left hepatic flexure and descending colon thickening with inflammatory stranding and edema consistent with acute diverticulitis/colitis. Perforated diverticulum in the proximal left colon. No drainable abscess or fluid collection. 2. Prior cholecystectomy. 3. 4 mm subpleural nodule in the right upper lobe laterally. Recommend 12 month follow-up. 4. Incidental fat-containing umbilical hernia. Interim history 05/08/2020 Patient comes today for colonoscopy status post episode of sigmoid colon diverticulitis. Denies any recent symptomatology and she is 6 to 8 weeks out from her last episode ROS All systems have been reviewed negative except as per the above or per problem list Medications/Allergies* Home Medications Medication Instructions Recorded Confirmed Type hydrocodone-acetaminophen 1 tab PO PRN PRN 05/05/20 05/05/20 History Allergies/Adverse Reactions Allergy/AdvReac Type Severity Reaction Status Date / Time ceftriaxone Allergy ALGY-Anaphy Verified 05/08/20 07:23 laxis Pertinent History/Comorbid Conditions* Medical History (Updated 04/06/20 @ 07:38 by Fercho Forte MD) Obese Family History (Updated 04/05/20 @ 13:54 by Reny Ramirez RN) Denies family history of Anesthesia complication Bleeding disorder Social History Smoking and tobacco status: current every day smoker cigarettes Alcohol intake: never Pertinent Exam Findings alert, oriented x 3, clear to auscultation bilaterally, regular rate & rhythm and procedure specific exam findings (Abdominal examination nontender nondistended soft/obese) Recommendations Surgery/Procedure today (Colonoscopy with possible biopsy and possible polypectomy) Coding Level of Care 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
[2020-05-08 07:23] LABS: OR HCG Qualitative Urine Negative (Negative)
[2020-05-08 07:26] VITALS: BP 125/79; PULSE 96; RESP 18; TEMP 36.1; O2SAT 96
[2020-05-08] MEDS: sodium chloride 0.9% 1,000 ML 30 ML IV (07:50)
--- NOTE | 2020-05-08 07:50 | ANES.PREANE2 ---
Pre-Anesthetic Assessment Pre-Anesthetic Assessment: Height/Weight: Height 1.75 m Weight 99.79 kg Temp Pulse Resp BP Pulse Ox 97 F L 96 18 125/79 96 05/08/20 07:26 05/08/20 07:26 05/08/20 07:26 05/08/20 07:26 05/08/20 07:26 Preop Diagnosis: History of diverticulitis Proposed Procedure: Operation Date: 05/08/20 08:00 Proposed Procedures p Colonoscopy 39257 k57.92(Not Applicable) - Fercho Forte MD Was Beta Yaa taken within 24 hours: N/A Last intake: Intake Last Liquid Date 05/07/20 Last Liquid Time 23:59 Last Solid Date 05/06/20 Last Solid Time 21:00 Social: Social History: Tobacco and No alcohol Exam: Pre-Anes Outpt Exam: alert, oriented x 3, clear to auscultation bilaterally and regular rate & rhythm Airway: Submandibular: WNL Cervical ROM: WNL MP: 2 History/ROS: No significant history except as noted Pulmonary: Pulmonary: None reported CV/HEM: CV/HEM: None reported : : None reported Hepatic: Hepatic: None reported GI: Comments: Diverticulitis with perforation that was medically managed Metabolic: Metabolic: None reported Musc/skel: Musc/skel: None reported Neuropsych: Neuropsych: None reported Anesthetic Plan: ASA status: 2 Anesthesia: MAC Meds/Allergies Current Medications: Current Medications Generic Name Dose Route Start Last Admin Trade Name Freq PRN Reason Stop Dose Admin Sodium Chloride 1,000 mls @ 30 ml s/hr 05/08/20 07:30 05/08/20 07:50 Sodium Chloride 0.9% IV 05/09/20 07:29 30 mls/hr .Q24H DARLINE Administration PFSH Anesthesia PFSH: Medical History Obese Family History Denies family history of Anesthesia complication Bleeding disorder Social History Smoking and tobacco status: current every day smoker cigarettes Alcohol intake: never Female Reproductive History: Date of last menstrual period: 05/04/20 Data Anesthesia Other Labs: Laboratory Results - last 48 hr 05/08/20 07:21 Urine HCG, Qual Negative Cardiac Studies: No Data to Display
[2020-05-08 08:18] VITALS: BP 121/69; PULSE 98; RESP 16; TEMP 36.8; O2SAT 98
--- NOTE | 2020-05-08 08:20 | ANE.PACU2 ---
Documented by User: Aman Bailey CRNA 05/08/20 08:20 Inpatient post-anesthesia follow up: Airway intact: Yes Vital signs: Temperature 98.2 F Pulse Rate 98 Respiratory Rate 16 Blood Pressure 121/69 Pulse Oximetry 98 Oxygen Delivery Me thod Room Air Oxygen Flow Rate Fraction of Inspir ed Oxygen Hydration adequate: Yes Nausea and vomiting: No Pain level: 1 Mental status: Baseline
[2020-05-08 08:27] VITALS: BP 136/78; PULSE 72; RESP 16; O2SAT 98
== END 2020-05-08 08:43 | disposition home or self-care (01) ==
PROVIDERS: Anesthesiology; Visit Provider Surgery
PROC: 0DJD8ZZ Inspection of Lower Intestinal Tract, Via Natural or Artificial Opening Endoscopic (ICD-10-PCS; CPT 45378; principal; 2020-05-08 08:00)
DX: Z87.19 Personal history of other diseases of the digestive system (principal); K57.30 Diverticulosis of large intestine without perforation or abscess without bleeding; F17.210 Nicotine dependence, cigarettes, uncomplicated
CPT/HCPCS: 12345; 45378; 84703; J2704; J7030

== ENCOUNTER → 2020-06-29 17:57 | Outpatient (BNVA) | payer OTHER, SELFPAY | PROVIDERS: Visit Provider Nurse Practitioner Family | DX: Z20.828 Contact with and (suspected) exposure to other viral communicable diseases (principal) | CPT/HCPCS: 87635 ==